=== PATIENT | male | born 1975 | race American Indian/Alaskan Native ===

== ENCOUNTER 2018-01-12 14:54 | Emergency (ER) | payer SELFPAY ==
[2018-01-12 15:06] VITALS: BP 140/94
[2018-01-12] MEDS ORDERED: TYLENOL ONE (16:57)
[2018-01-12] MEDS ORDERED: TYLENOL PO ONE (16:57)
--- NOTE | 2018-01-12 18:24 | Emergency Department Report ---
ED Shortness of Breath HPI - General Chief Complaint: Dyspnea/Respdistress Stated Complaint: TROUBLE BREATHING Time Seen by Provider: 01/12/18 16:10 Source: patient Mode of arrival: Ambulatory Limitations: No Limitations - History of Present Illness Initial Comments: Patient is a 6-year-old male who is presenting with cough and congestion. Patient states she's had a productive cough for the last 3-4 days with some shortness of breath. Patient denies any fevers chills nausea vomiting at this time. There is no pleuritic chest pain. MD Complaint: cough Pain Scale: 3 - Related Data Previous Rx's Medication Instructions Recorded Last Taken Type ALBUTEROL Inhaler [ProAir HFA 2 puff IH QID PRN #1 inhalation 01/12/18 Unknown Rx Inhaler] Azithromycin [Zithromax Z-YAMILETH] 250 mg PO DAILY #6 tablet 01/12/18 Unknown Rx predniSONE [Deltasone] 20 mg PO QDAY #5 tab 01/12/18 Unknown Rx Allergies Allergy/AdvReac Type Severity Reaction Status Date / Time No Known Allergies Allergy Unverified 01/12/18 15:01 ED Review of Systems ROS: Stated complaint: TROUBLE BREATHING Other details as noted in HPI Comment: All other systems reviewed and negative ED Past Medical Hx - Past Medical History Previous Medical History?: Yes Hx GERD: Yes Additional medical history: Back pain - Surgical History Past Surgical History?: Yes Additional Surgical History: Back surgery-discetomy - Social History Smoking Status: Never Smoker Substance Use Type: None - Medications Home Medications: Home Medications Medication Instructions Recorded Confirmed Last Taken Type ALBUTEROL Inhaler [ProAir HFA 2 puff IH QID PRN #1 inhalation 01/12/18 Unknown Rx Inhaler] Azithromycin [Zithromax Z-YAMILETH] 250 mg PO DAILY #6 tablet 01/12/18 Unknown Rx predniSONE [Deltasone] 20 mg PO QDAY #5 tab 01/12/18 Unknown Rx ED Physical Exam - General Limitations: No Limitations General appearance: alert, in no apparent distress - Head Head exam: Present: atraumatic, normocephalic - Eye Eye exam: Present: normal appearance - ENT ENT exam: Present: mucous membranes moist - Neck Neck exam: Present: normal inspection - Respiratory Respiratory exam: Present: normal lung sounds bilaterally. Absent: respiratory distress, wheezes, rales, rhonchi, stridor, chest wall tenderness, accessory muscle use, decreased breath sounds, prolonged expiratory - Cardiovascular Cardiovascular Exam: Present: regular rate, normal rhythm. Absent: systolic murmur, diastolic murmur, rubs, gallop - GI/Abdominal GI/Abdominal exam: Present: soft, normal bowel sounds - Rectal Rectal exam: Present: deferred - Extremities Exam Extremities exam: Present: normal inspection - Back Exam Back exam: Present: normal inspection - Neurological Exam Neurological exam: Present: alert, oriented X3 - Psychiatric Psychiatric exam: Present: normal affect, normal mood - Skin Skin exam: Present: warm, dry, intact, normal color. Absent: rash ED Course Vital Signs 01/12/18 15:01 Temperature 98.8 F Pulse Rate 83 Respiratory 20 Rate Blood Pressure 140/94 O2 Sat by Pulse 99 Oximetry ED Medical Decision Making - Radiology Data Radiology results: image reviewed interpreted by me: X-rays within normal limits - Medical Decision Making Patient be treated for smokers bronchitis at this time. Critical care attestation.: If time is entered above; I have spent that time in minutes in the direct care of this critically ill patient, excluding procedure time. ED Disposition Clinical Impression: Acute bronchitis Qualifiers: Bronchitis organism: unspecified organism Qualified Code(s): J20.9 - Acute bronchitis, unspecified Disposition: - TO HOME OR SELFCARE Is pt being admited?: No Does the pt Need Aspirin: No Condition: Stable Instructions: Acute Bronchitis (ED) Referrals: PRIMARY CARE, [Primary Care Provider] - 3-5 Days
--- NOTE | 2018-01-12 18:39 | XRay Report ---
FINAL REPORT PROCEDURE: XR CHEST ROUTINE 2V TECHNIQUE: PA and lateral chest radiographs were obtained. CPT 85446 HISTORY: productive cough COMPARISON: No prior studies are available for comparison. FINDINGS: Heart: Normal. Mediastinum/Vessels: Normal. Lungs/Pleural space: Normal. Bony thorax: No acute osseous abnormality. Other: IMPRESSION: Normal examination.
== END 2018-01-12 18:33 | disposition home or self-care (01) ==
LOC: ED 14:54
DX: J20.9 Acute bronchitis, unspecified (principal); K21.9 Gastro-esophageal reflux disease without esophagitis
CPT/HCPCS: 71046; 93005; 93010; 99283